=== PATIENT | male | born 1930 | race Caucasian/White ===

== ENCOUNTER 2018-01-25 12:14 | Outpatient (CLI) | payer MEDICARE, BC ==
[~2018-01-25] VITALS: Ht 180.3 cm; Wt 86.2 kg
[~2018-01-25 12:14] MED LIST: ADVAIR 230/21 PO; ALB0.5UD NEB; CARV3.122 PO; SIMV20TA5 PO; UBID1CAP54 PO; WARF5TAB PO; XAL0.005OS OP
[2018-01-25 13:01] LABS: TOTAL HEMOGLOBIN 14.8 G/dl (14.0-18.0)
[2018-01-25] MEDS ORDERED: albuterol 2.5 MG/3 ML nebule NEB ONE (13:20)
== END 2018-01-25 23:59 | disposition home or self-care (01) ==
LOC: RT 12:14
PROVIDERS: ATTEND Internal Medicine Pulmonary Disease
DX: J44.9 Chronic obstructive pulmonary disease, unspecified (principal)
CPT/HCPCS: 85018; 94010; 94727; 94729

== ENCOUNTER 2020-07-02 07:01 | Outpatient (CLI) | payer MEDICARE ==
[~2020-07-02 07:01] MED LIST changes: -ADVAIR 230/21 PO; -ALB0.5UD NEB; +ATRNS; +GABA-530 PO; +SIMV-42 PO; -SIMV20TA5 PO; -WARF5TAB PO; +WARF5TAB2 PO
[2020-07-02 07:31] LABS: TOTAL HEMOGLOBIN 16.1 G/dl (14.0-18.0)
== END 2020-07-02 23:59 | disposition home or self-care (01) ==
LOC: RT 07:01
PROVIDERS: ATTEND Internal Medicine Pulmonary Disease
DX: J84.112 Idiopathic pulmonary fibrosis (principal); R94.2 Abnormal results of pulmonary function studies
CPT/HCPCS: 85018; 94010; 94727; 94729

== ENCOUNTER 2020-10-21 06:17 | Outpatient (CLI) | payer MEDICARE | END 2020-10-21 23:59 | disposition home or self-care (01) | LOC: RT 06:17 | PROVIDERS: ATTEND Internal Medicine Pulmonary Disease | DX: J84.10 Pulmonary fibrosis, unspecified (principal); J44.9 Chronic obstructive pulmonary disease, unspecified | CPT/HCPCS: 94618 ==

== ENCOUNTER 2021-06-04 06:15 | Emergency (ER) | payer MEDICARE ==
[~2021-06-04] VITALS: Ht 157.5 cm; Wt 77.6 kg
[2021-06-04] MEDS ORDERED: TETanus/Pertussis (Acell)/Diphther VAC/PF (Tdap-Adult) 0.5ml syringe IMVAC ONE (06:40)
--- NOTE | 2021-06-04 07:13 | NUR ---
PT TAKEN TO CT. PT HAS NO OBVIOUS DISTRESS NOTED. ON CHRONIC 3L NC. NO PAIN
[2021-06-04] MEDS ORDERED: LIDOcaine 1% W/epiNEPHrine 1:200,000 10ml vial IJ ONE (07:50)
[2021-06-04 08:57] VITALS: BP 111/75
== END 2021-06-04 08:58 | disposition home or self-care (01) ==
LOC: ER 06:16
DX: S01.111A Laceration without foreign body of right eyelid and periocular area, initial encounter (principal); I48.91 Unspecified atrial fibrillation; I25.10 Atherosclerotic heart disease of native coronary artery without angina pectoris; Z20.3 Contact with and (suspected) exposure to rabies; Z98.890 Other specified postprocedural states; Z95.0 Presence of cardiac pacemaker; Z79.899 Other long term (current) drug therapy; W19.XXXA Unspecified fall, initial encounter; Y93.89 Activity, other specified; Y92.89 Other specified places as the place of occurrence of the external cause; Y99.8 Other external cause status
CPT/HCPCS: 12011; 70450; 70486; 72125; 90471; 90715; 99285

== ENCOUNTER 2021-09-10 21:54 | Inpatient (IN) | payer MEDICARE ==
[~2021-09-10] VITALS: Ht 180.3 cm; Wt 89.1 kg
[~2021-09-10 21:54] MED LIST changes: +HYDR12.55 PO
[2021-09-10] MEDS ORDERED: normal saline 1000ml 1,000 ML IV ONE (22:05)
[2021-09-10 22:26] LABS: EOSINOPHILS # (AUTO) 0.1 X10'3 (0-0.9); MONOCYTES # (AUTO) 0.4 X10'3 (0-0.9); PLATELET COUNT 82 X10'3 (140-440)
[2021-09-10 22:28] LABS: BASOPHILS % (AUTO) 0.5 % (0-1); EOSINOPHILS % (AUTO) 1.3 % (0-6); HEMATOCRIT 41.1 % (42.0-52.0); HEMOGLOBIN 13.2 g/dl (14.0-17.9); LYMPHOCYTES # (AUTO) 1.6 X10'3 (1.1-4.8); LYMPHOCYTES % (AUTO) 24.6 % (21-51); MEAN CORPUSCULAR HEMOGLOBIN 29.7 PG (27.0-31.0); MEAN CORPUSCULAR HGB CONC 32.1 g/dL (33.0-36.5); MEAN CORPUSCULAR VOLUME 92.6 FL (78-98); MEAN PLATELET VOLUME 9.8 FL (7.4-10.4); MONOCYTES % (AUTO) 6.6 % (2-12); NEUTROPHILS # (AUTO) 4.3 X10'3 (1.8-7.7); RED BLOOD COUNT 4.44 X10'6 (4.70-6.10); RED CELL DISTRIBUTION WIDTH 17.9 % (11.5-14.5); WHITE BLOOD COUNT 6.4 X10'3 (4.5-11.0)
[2021-09-10 22:40] LABS: D-DIMER 1.95 MG/L FEU (0-0.50)
[2021-09-10 22:42] LABS: ALANINE AMINOTRANSFERASE 25 U/L (12-78); ALBUMIN 3.1 G/DL (3.4-5.0); ALBUMIN/GLOBULIN RATIO 0.9 (1.1-1.5); ALKALINE PHOSPHATASE 94 IU/L (46-116); ANION GAP 7 (8-16); ASPARTATE AMINO TRANSFERASE 24 U/L (10-37); BILIRUBIN,TOTAL 1.6 MG/DL (0.1-1.0); BLOOD UREA NITROGEN 29 MG/DL (7-18); BUN/CREATININE RATIO 20.3 (5.4-32.0); CALCIUM 8.8 MG/DL (8.5-10.1); CHLORIDE 107 MMOL/L (99-107); CREATININE 1.43 MG/DL (0.60-1.10); GLUCOSE 111 MG/DL (70-104); SODIUM 147 MMOL/L (135-145); TOTAL CARBON DIOXIDE 33.2 MMOL/L (24-32); TOTAL PROTEIN 6.5 G/DL (6.4-8.2); eGFR 47 ML/MIN
[2021-09-10] MEDS ORDERED: normal saline 1000ML IV soln IVB ONE (22:45)
[2021-09-11] VITALS (12 sets, daily range): BP systolic 77–124; BP diastolic 45–78
[2021-09-11] MEDS ORDERED: CLINDAMYCIN 300mg/NS 50ml IVPB 50 ML IV SCH (00:12)
[2021-09-11] MEDS ORDERED: iohexol 350MG/ML 100ml bottle IV ONE (00:26)
[2021-09-11] MEDS ORDERED: acetaminophen 325mg tablet PO PRN (02:00)
[2021-09-11] MEDS ORDERED: potassium Cl 40MEQ/1/2NS 520ml 520 ML IV PRN ×2 (02:00)
[2021-09-11] MEDS ORDERED: potassium Cl 20 mEq SR tablet PO PRN (02:00)
[2021-09-11] MEDS ORDERED: ondansetron/PF 4mg/2ml inj IV PRN (02:00)
[2021-09-11] MEDS ORDERED: magnesium hydroxide 30ml (MOM) UD suspension PO PRN (02:00)
[2021-09-11] MEDS ORDERED: mag hydrox/Alum hydrox/simeth 30ml oral suspension PO PRN (02:00)
[2021-09-11] MEDS ORDERED: PERFLUTREN PROTEIN-A MICROSPHR (Optison) 0.22 MG/ML 3ML VIAL IV PRN (02:00)
[2021-09-11] MEDS ORDERED: methylPREDNISolone sod succ/PF 40mg inj. IV ONE (02:10)
--- NOTE | 2021-09-11 03:51 | NUR ---
Patient in room ED 5. I have received report from REAGAN MURPHY and had the opportunity to ask questions and assume patient care.
--- NOTE | 2021-09-11 04:06 | NUR ---
ATTEMPTED TO INTERREGATE PACEMAKER WITH [facility] [employer] BUT NEITHER WORKED. PT UNSURE OF PACEMAKER BRAND.
--- NOTE | 2021-09-11 06:34 | NUR ---
Problems reprioritized. Patient report given, questions answered & plan of care reviewed with Ayana MURPHY.
--- NOTE | 2021-09-11 07:35 | NUR ---
Patient in room PCU 3024. I have received report from Anitha MURPHY and had the opportunity to ask questions and assume patient care. Pt right side lying in bed, HOB at 15 degrees, breathing even and non labored. safety measures in place. no current active bleeding to head laceration secondary to fall. at bedside. no s/sx acute distress.
[2021-09-11] MEDS: K and/or MAG REPLACEMENT MC SCH ×2 (08:00→20:00)
[2021-09-11] MEDS ORDERED: warfarin 5mg tablet PO SCH (08:00)
[2021-09-11] MEDS: carVEDilol 3.125mg tablet PO SCH ×2 (08:00→20:33)
[2021-09-11] MEDS: atorvastatin 10mg tablet PO SCH (08:31)
[2021-09-11] MEDS: docusate sod 100mg capsule PO SCH ×2 (08:31→20:34)
--- NOTE | 2021-09-11 10:21 | NUR ---
Called Dr. Huynh's office to attempt to find out what kind of pacemaker pt has. Per Sarah at Dr. Huynh's office, Pt has [employer] device. Evin with [employer] called at [phone]. Per Evin, he is on the way to [place] now and then will head back this way to [place] to interrogate pt's pacemaker. Addendum: 09/11/21 at 1038 by Ayana Gallardo RN pacemaker infor report unit at pt bedside and initiated so information can be transmitted to Evin. Addendum: 09/11/21 at 1211 by Ayana Gallardo RN Per Evin at [employer]: single chamber pacemaker: 60 BPM base rate, paces 16% of the time. all tests revealed normal function of pacemaker. 2 high ventricular episodes recorded: 3 sec. of AFIB RVR, Sep.05 3 sec of AFIB with RVR. good Heart rate distribution, very occasionally paces.
[2021-09-11] MEDS ORDERED: furosemide 40mg/4ml inj IV ONE ×2 (12:10→18:30)
--- NOTE | 2021-09-11 12:30 | NUR ---
Lasix admin delayed until after VQ scan per Dr. Márquez direction.
--- NOTE | 2021-09-11 13:37 | NUR ---
paged pharmacy re: ipatropium nasal spray. med needed for administration.
[2021-09-11] MEDS ORDERED: TRAZ-251 PO (13:55)
[2021-09-11] MEDS ORDERED: POTA10TA10 PO (13:55)
[2021-09-11] MEDS ORDERED: BUME2TAB7 PO (13:55)
--- NOTE | 2021-09-11 14:25 | NUR ---
Age screen: Pt admit for syncope. Initially on a heart healthy diet however patient's diet has been appropriately adjusted to mechanical soft vegetarian with nectar thick liquids. Noted pt s/p BSS at previous visit 08/[address] recs mechanical soft chopped food with nectar thick liquids and pt with good PO intake that admit. D/w dietary to chop foods this admit. Pt documented with a head laceration s/p fall which has been repaired per H&P. LBM 09/10, receiving routine bowel care. Will continue to follow and monitor need for nutrition intervention pending trends in PO intake. Addendum: 09/11/21 at [address] Amended: Links added.
[2021-09-11] MEDS ORDERED: DOBUTamine-DoBUTrex 500mg/D5W 250 ML IV SCH (16:15)
--- NOTE | 2021-09-11 16:30 | NUR ---
Paged Dr. Márquez Paged Dr. Márquez to confirm MD order for dobutamine drip. Dr. Márquez call back and state "yes start the drip."
--- NOTE | 2021-09-11 17:00 | NUR ---
Paged Dr. Márquez regarding strict I&O requirement with dobutamine asked if Dr. Márquez wants garcia catheter to monitor strict I&O with dobutamine per protocol due to pt with mixed continent/incontinent.
[2021-09-11] MEDS ORDERED: DOPamine 400mg/D5W 250ml 250 ML IV SCH (17:20)
[2021-09-11] MEDS: ipratropium 0.06% nasal spray 15ml NS SCH (17:22)
[2021-09-11] MEDS ORDERED: furosemide 20 MG/2 ML vial IV ONE (17:30)
--- NOTE | 2021-09-11 17:52 | NUR ---
Called Dr. Colvin to update on his fathers status. grateful for notification.
--- NOTE | 2021-09-11 17:54 | NUR ---
Paged Dr. Márquez: "RE: Paulino Colvin: [id number]: garcia catheter for strict I&O? -Ayana #[id number]"
--- NOTE | 2021-09-11 18:20 | NUR ---
Dr. Huynh to see pt. new orders received. d/c one time lasix 20 mg. start 40mg Q8hr CM/DC planning for "picc line at home for low flow dopamine" garcia catheter ensure covid test completed. start dopamine 2mcg/kg/min.
--- NOTE | 2021-09-11 19:00 | NUR ---
Problems reprioritized. Patient report given, questions answered & plan of care reviewed with Kathia MURPHY. full report of med changes and orders given. detailed report given. no s/sx acute distress.
[2021-09-11] MEDS ORDERED: LIDOcaine 2% 10ml TOPICAL JELLY (Urojet) TP ONE (19:05)
[2021-09-11] MEDS ORDERED: warfarin 2.5mg tablet PO ONE (21:00)
[2021-09-11] MEDS ORDERED: VIT E ACETATE PO SCH (21:00)
[2021-09-11] MEDS ORDERED: UBIDECARENONE PO SCH (21:00)
[2021-09-11] MEDS: latanoprost 0.005% 2.5ml ophthalmic drops EACHEYE SCH (21:00)
[2021-09-11] MEDS: DOPamine 400mg/D5W 250ml 250 ML IV SCH (23:03)
[2021-09-12] VITALS (16 sets, daily range): BP systolic 85–136; BP diastolic 52–95
[2021-09-12 01:04] LABS: BASOPHILS % (AUTO) 0.2 % (0-1); EOSINOPHILS # (AUTO) 0.1 X10'3 (0-0.9); EOSINOPHILS % (AUTO) 1.1 % (0-6); LYMPHOCYTES # (AUTO) 1.3 X10'3 (1.1-4.8); LYMPHOCYTES % (AUTO) 21.9 % (21-51); MEAN CORPUSCULAR HEMOGLOBIN 29.9 PG (27.0-31.0); MEAN CORPUSCULAR HGB CONC 32.6 g/dL (33.0-36.5); MEAN CORPUSCULAR VOLUME 91.6 FL (78-98); MEAN PLATELET VOLUME 9.8 FL (7.4-10.4); MONOCYTES # (AUTO) 0.4 X10'3 (0-0.9); MONOCYTES % (AUTO) 6.8 % (2-12); NEUTROPHILS # (AUTO) 4.2 X10'3 (1.8-7.7); PLATELET COUNT 86 X10'3 (140-440); RED BLOOD COUNT 4.37 X10'6 (4.70-6.10); RED CELL DISTRIBUTION WIDTH 17.6 % (11.5-14.5)
[2021-09-12] MEDS: latanoprost 0.005% 2.5ml ophthalmic drops EACHEYE SCH (01:15)
[2021-09-12 01:19] LABS: ALANINE AMINOTRANSFERASE 27 U/L (12-78); ALBUMIN 3.1 G/DL (3.4-5.0); ALBUMIN/GLOBULIN RATIO 0.9 (1.1-1.5); ALKALINE PHOSPHATASE 93 IU/L (46-116); ANION GAP 4 (8-16); ASPARTATE AMINO TRANSFERASE 24 U/L (10-37); BILIRUBIN,TOTAL 1.4 MG/DL (0.1-1.0); BLOOD UREA NITROGEN 26 MG/DL (7-18); BUN/CREATININE RATIO 25.7 (5.4-32.0); CHLORIDE 107 MMOL/L (99-107); CREATININE 1.01 MG/DL (0.60-1.10); GLUCOSE 116 MG/DL (70-104); MAGNESIUM 2.5 MG/DL (1.5-2.4); POTASSIUM 4.3 MMOL/L (3.5-5.1); SODIUM 145 MMOL/L (135-145); TOTAL CARBON DIOXIDE 34.1 MMOL/L (24-32); TOTAL PROTEIN 6.7 G/DL (6.4-8.2); eGFR 70 ML/MIN
--- NOTE | 2021-09-12 06:37 | NUR ---
Patient in room PCU 3022. I have received report from Kathia MURPHY and had the opportunity to ask questions and assume patient care. Pt right side lying in bed, breathing even and non labored. 5LPM//. dopamine at 3mcgs. bp 115/64; 98; 98%; 14; safety measures in place. no s/sx acute distress.
[2021-09-12] MEDS: K and/or MAG REPLACEMENT MC SCH ×2 (08:00→20:00)
[2021-09-12] MEDS: ipratropium 0.06% nasal spray 15ml NS SCH (08:00)
[2021-09-12] MEDS: atorvastatin 10mg tablet PO SCH (08:40)
[2021-09-12] MEDS: carVEDilol 3.125mg tablet PO SCH ×2 (08:41→20:31)
[2021-09-12] MEDS: furosemide 40mg/4ml inj IV SCH ×4 (08:41→20:31)
[2021-09-12] MEDS: docusate sod 100mg capsule PO SCH ×2 (08:41→20:31)
--- NOTE | 2021-09-12 15:20 | NUR ---
Nutrition consult re: "pt/ would like to discuss diet, vegetarian diet too scanty". Noted patient's diet has been changed from vegetarian to heart healthy with no pork. Pt seen at bedside, SO not present. Pt confirms he would like to continue current diet and just not receive pork and denies any questions or concerns about meal trays or diet order. Pt endorses a good appetite and states he is okay with receiving chopped food during admit. Pt denies any food allergies. RD contact information provided and pt encouraged to reach out for further questions. RD d/w RN regarding patient's meals while on vegetarian diet. RN reports concerns regarding insufficient entree on vegetarian diet. This will be d/w dietary GM and head of stock. Addendum: 09/12/21 at [address] Amended: Links added.
[2021-09-12] MEDS: DOPamine 400mg/D5W 250ml 250 ML IV SCH (17:47)
--- NOTE | 2021-09-12 17:48 | NUR ---
F/u: Received TC from RN that patient's SO at bedside. Pt and SO seen at bedside, food preferences were obtained and d/w dietary. Requests: yogurt BIDBD, cottage cheese WL, and no MSG. SO requested diet be advanced to regular and for pt to just have no salt packets, d/w RN and dietary. SO requests to not chop food so patient cant get additional items such as bread, d/w dietary. SO agrees to f/u BSS with ST this admit to ensure pt receives most appropriate texture modification, d/w RN. SO also inquired about protein intake for pt. RD discussed ways to increase protein intake with food and ONS and provided ONS coupons. SO declines need for ONS during admit at this time. Of note, pt eating well with average 75% PO intake throughout LOS. All questions were answered at this time. Pt and SO once again encouraged to reach out for any additional questions/concerns. Will remain available. Addendum: 09/12/21 at [address] Amended: Links added.
--- NOTE | 2021-09-12 18:18 | NUR ---
MRI with Pacemaker: Evin with [employer] called. 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 (no testing done on this particular pacemaker therefore not approved. if benefit outweighs risk, then proceed with caution)
--- NOTE | 2021-09-12 18:50 | NUR ---
Problems reprioritized. Patient report given, questions answered & plan of care reviewed with Olivia MURPHY. reviewed cardiac drip, necessity for new IV site shelbi, and pacemaker not compatable with MRI in addition to all other applicable medical/social information. IV patent running dopamine at 3mcgs.
[2021-09-12] MEDS ORDERED: warfarin 2.5mg tablet PO ONE (21:00)
--- NOTE | 2021-09-12 21:05 | NUR ---
19 beats of Vtach reported to Dr Ruiz order given to draw K and Mag and replace as needed. CMP ordered stat.
[2021-09-12 21:46] LABS: ALANINE AMINOTRANSFERASE 24 U/L (12-78); ALBUMIN 2.9 G/DL (3.4-5.0); ALBUMIN/GLOBULIN RATIO 0.8 (1.1-1.5); ALKALINE PHOSPHATASE 96 IU/L (46-116); ANION GAP 4 (8-16); ASPARTATE AMINO TRANSFERASE 24 U/L (10-37); BILIRUBIN,TOTAL 1.5 MG/DL (0.1-1.0); BLOOD UREA NITROGEN 20 MG/DL (7-18); CALCIUM 9.2 MG/DL (8.5-10.1); CHLORIDE 105 MMOL/L (99-107); CREATININE 0.91 MG/DL (0.60-1.10); GLUCOSE 99 MG/DL (70-104); SODIUM 146 MMOL/L (135-145); TOTAL CARBON DIOXIDE 36.9 MMOL/L (24-32); TOTAL PROTEIN 6.7 G/DL (6.4-8.2); eGFR 78 ML/MIN
[2021-09-13] VITALS (9 sets, daily range): BP systolic 81–120; BP diastolic 55–84
--- NOTE | 2021-09-13 04:21 | NUR ---
Pt asleep arousal,denied any chest discomfort. IV medication infusing well.
--- NOTE | 2021-09-13 06:50 | NUR ---
Patient in room PCU 3022. I have received report from Olivia MURPHY and had the opportunity to ask questions and assume patient care.
[2021-09-13] MEDS: K and/or MAG REPLACEMENT MC SCH ×2 (08:00→20:00)
[2021-09-13] MEDS: docusate sod 100mg capsule PO SCH ×2 (08:00→20:49)
[2021-09-13] MEDS: ipratropium 0.06% nasal spray 15ml NS SCH (08:00)
[2021-09-13] MEDS: atorvastatin 10mg tablet PO SCH (08:00)
[2021-09-13 08:10] LABS: ANION GAP 5 (8-16); BASOPHILS % (AUTO) 0.3 % (0-1); BLOOD UREA NITROGEN 18 MG/DL (7-18); CHLORIDE 105 MMOL/L (99-107); CREATININE 0.72 MG/DL (0.60-1.10); EOSINOPHILS # (AUTO) 0.2 X10'3 (0-0.9); EOSINOPHILS % (AUTO) 2.7 % (0-6); GLUCOSE 86 MG/DL (70-104); HEMATOCRIT 37.7 % (42.0-52.0); HEMOGLOBIN 12.1 g/dl (14.0-17.9); LYMPHOCYTES # (AUTO) 1.2 X10'3 (1.1-4.8); LYMPHOCYTES % (AUTO) 19.1 % (21-51); MEAN CORPUSCULAR HEMOGLOBIN 29.2 PG (27.0-31.0); MEAN CORPUSCULAR HGB CONC 32.1 g/dL (33.0-36.5); MEAN CORPUSCULAR VOLUME 90.8 FL (78-98); MEAN PLATELET VOLUME 9.1 FL (7.4-10.4); MONOCYTES # (AUTO) 0.5 X10'3 (0-0.9); MONOCYTES % (AUTO) 7.4 % (2-12); NEUTROPHILS # (AUTO) 4.4 X10'3 (1.8-7.7); NEUTROPHILS % (AUTO) 70.5 % (42-75); PLATELET COUNT 91 X10'3 (140-440); POTASSIUM 3.3 MMOL/L (3.5-5.1); RED BLOOD COUNT 4.16 X10'6 (4.70-6.10); RED CELL DISTRIBUTION WIDTH 17.7 % (11.5-14.5); SODIUM 146 MMOL/L (135-145); TOTAL CARBON DIOXIDE 35.9 MMOL/L (24-32); WHITE BLOOD COUNT 6.2 X10'3 (4.5-11.0)
[2021-09-13 08:11] LABS: ALANINE AMINOTRANSFERASE 19 U/L (12-78); ALBUMIN 2.7 G/DL (3.4-5.0); ALBUMIN/GLOBULIN RATIO 0.8 (1.1-1.5); ALKALINE PHOSPHATASE 84 IU/L (46-116); ASPARTATE AMINO TRANSFERASE 23 U/L (10-37); BILIRUBIN,TOTAL 1.8 MG/DL (0.1-1.0); CALCIUM 8.5 MG/DL (8.5-10.1); MAGNESIUM 2.1 MG/DL (1.5-2.4); TOTAL PROTEIN 5.9 G/DL (6.4-8.2); eGFR > 90 ML/MIN
[2021-09-13] MEDS: carVEDilol 3.125mg tablet PO SCH ×2 (09:29→20:50)
[2021-09-13] MEDS: furosemide 40mg/4ml inj IV SCH (09:29)
[2021-09-13] MEDS: potassium Cl 20 mEq SR tablet PO PRN ×3 (10:29→20:49)
[2021-09-13] MEDS ORDERED: DOPamine 400mg/D5W 250ml 250 ML IV SCH (13:30)
--- NOTE | 2021-09-13 18:13 | NUR ---
[place] documentation: I have reviewed and agree with all interventions, assessments performed and documented by Abigail MURPHY.
--- NOTE | 2021-09-13 18:14 | NUR ---
[place] Medication Administration: For this medication-pass time frame, all medication were reviewed, dispensed, administered and documented per hospital policy by Abigail MURPHY.
--- NOTE | 2021-09-13 18:36 | NUR ---
Problems reprioritized. Patient report given, questions answered & plan of care reviewed with Olivia MURPHY. Patient stable at transfer of care.
[2021-09-13] MEDS: latanoprost 0.005% 2.5ml ophthalmic drops EACHEYE SCH (20:50)
[2021-09-13] MEDS ORDERED: warfarin 2.5mg tablet PO ONE (21:00)
[2021-09-13] MEDS: bumetanide 0.25mg/ml 4ml vial IV SCH (21:01)
--- NOTE | 2021-09-14 01:00 | NUR ---
Pt removed IV while sleeping; new IV access placed in right lateral hand. Linen changed done.
[2021-09-14 06:26] LABS: BASOPHILS % (AUTO) 0.3 % (0-1); EOSINOPHILS # (AUTO) 0.1 X10'3 (0-0.9); EOSINOPHILS % (AUTO) 2.4 % (0-6); HEMATOCRIT 39.6 % (42.0-52.0); HEMOGLOBIN 12.8 g/dl (14.0-17.9); LYMPHOCYTES # (AUTO) 1.1 X10'3 (1.1-4.8); MEAN CORPUSCULAR HEMOGLOBIN 29.7 PG (27.0-31.0); MEAN CORPUSCULAR HGB CONC 32.4 g/dL (33.0-36.5); MEAN CORPUSCULAR VOLUME 91.6 FL (78-98); MEAN PLATELET VOLUME 9.4 FL (7.4-10.4); MONOCYTES # (AUTO) 0.3 X10'3 (0-0.9); MONOCYTES % (AUTO) 6.7 % (2-12); NEUTROPHILS # (AUTO) 3.5 X10'3 (1.8-7.7); NEUTROPHILS % (AUTO) 68.6 % (42-75); PLATELET COUNT 93 X10'3 (140-440); RED BLOOD COUNT 4.33 X10'6 (4.70-6.10); RED CELL DISTRIBUTION WIDTH 17.9 % (11.5-14.5); WHITE BLOOD COUNT 5.1 X10'3 (4.5-11.0)
[2021-09-14 06:40] LABS: ALANINE AMINOTRANSFERASE 19 U/L (12-78); ALBUMIN 2.9 G/DL (3.4-5.0); ALBUMIN/GLOBULIN RATIO 0.9 (1.1-1.5); ALKALINE PHOSPHATASE 88 IU/L (46-116); ANION GAP 6 (8-16); ASPARTATE AMINO TRANSFERASE 23 U/L (10-37); BILIRUBIN,TOTAL 2.7 MG/DL (0.1-1.0); BLOOD UREA NITROGEN 21 MG/DL (7-18); BUN/CREATININE RATIO 25.6 (5.4-32.0); CALCIUM 9.2 MG/DL (8.5-10.1); CHLORIDE 105 MMOL/L (99-107); CREATININE 0.82 MG/DL (0.60-1.10); GLUCOSE 91 MG/DL (70-104); POTASSIUM 3.8 MMOL/L (3.5-5.1); SODIUM 144 MMOL/L (135-145); TOTAL CARBON DIOXIDE 33.4 MMOL/L (24-32); TOTAL PROTEIN 6.3 G/DL (6.4-8.2); eGFR 88 ML/MIN
[2021-09-14 07:00] VITALS: BP 116/79
--- NOTE | 2021-09-14 07:35 | NUR ---
Patient in room PCU 3022. I have received report from Olivia MURPHY and had the opportunity to ask questions and assume patient care.
[2021-09-14] MEDS: carVEDilol 3.125mg tablet PO SCH (08:00)
[2021-09-14] MEDS: ipratropium 0.06% nasal spray 15ml NS SCH (08:00)
[2021-09-14] MEDS: bumetanide 0.25mg/ml 4ml vial IV SCH (08:00)
[2021-09-14] MEDS: K and/or MAG REPLACEMENT MC SCH (08:00)
[2021-09-14] MEDS: docusate sod 100mg capsule PO SCH (09:47)
[2021-09-14] MEDS: atorvastatin 10mg tablet PO SCH (09:47)
[2021-09-14 11:00] VITALS: BP 110/69
[2021-09-14] MEDS ORDERED: BUME2TAB7 PO (13:23)
--- NOTE | 2021-09-14 14:05 | NUR ---
Page Sent promotional table spacer PAGER ID: [phone] MESSAGE: [id number] Vinicius. Bumetanide is listed on the discharge twice. Once under new meds and once under continuing meds for a total of 4 mg. Did you want him to take 4 mg or 2 mg twice daily? Liyah [id number]
--- NOTE | 2021-09-14 15:44 | NUR ---
PT was dc to home. PIV x2 were removed with cannula intact. DC instructions and warning s/s were reviewed with patient and . They verbalized understanding. All belonging were sent with pt. he was using his home portable o2 to go home. RX were sent to [facility] on [address]. PT was alert, oriented, and appropriate at time of dc.
[2021-09-14] MEDS ORDERED: warfarin 4mg tablet PO ONE (21:00)
== END 2021-09-14 15:05 | disposition home health service (06) | DRG 604 ==
LOC: ER 21:55 → ED HOLD 09-11 02:03 → PCU 3S 09-11 04:00
PROVIDERS: ADMIT Internal Medicine; ATTEND Internal Medicine
PROC: 0HQ0XZZ Repair Scalp Skin, External Approach (ICD-10-PCS; principal; 2021-09-10)
PROC: B32T1ZZ Computerized Tomography (CT Scan) of Left Pulmonary Artery using Low Osmolar Contrast (ICD-10-PCS; 2021-09-11)
PROC: B3201ZZ Computerized Tomography (CT Scan) of Thoracic Aorta using Low Osmolar Contrast (ICD-10-PCS; 2021-09-11)
PROC: B32S1ZZ Computerized Tomography (CT Scan) of Right Pulmonary Artery using Low Osmolar Contrast (ICD-10-PCS; 2021-09-11)
PROC: CB121ZZ Planar Nuclear Medicine Imaging of Lungs and Bronchi using Technetium 99m (Tc-99m) (ICD-10-PCS; 2021-09-11)
DX: S01.01XA Laceration without foreign body of scalp, initial encounter (principal); I50.33 Acute on chronic diastolic (congestive) heart failure; I48.91 Unspecified atrial fibrillation; I25.10 Atherosclerotic heart disease of native coronary artery without angina pectoris; J44.9 Chronic obstructive pulmonary disease, unspecified; I07.1 Rheumatic tricuspid insufficiency; Z20.822 Contact with and (suspected) exposure to COVID-19; I27.20 Pulmonary hypertension, unspecified; J84.10 Pulmonary fibrosis, unspecified; Z66 Do not resuscitate; I27.81 Cor pulmonale (chronic); R09.02 Hypoxemia; W18.39XA Other fall on same level, initial encounter; R77.8 Other specified abnormalities of plasma proteins; R32 Unspecified urinary incontinence; Z85.820 Personal history of malignant melanoma of skin; Z90.79 Acquired absence of other genital organ(s); Z95.1 Presence of aortocoronary bypass graft; Z95.5 Presence of coronary angioplasty implant and graft; Z79.899 Other long term (current) drug therapy; Y93.89 Activity, other specified; Y92.098 Other place in other non-institutional residence as the place of occurrence of the external cause; Y99.8 Other external cause status
CPT/HCPCS: 12001; 36415; 70450; 71045; 71275; 72125; 78582; 80053; 82948; 83605; 83735; 83880; 84145; 84484; 85025; 85379; 85610; 86885; 86900; 86901; 87040; 87081; 87635; 92508; 92616; 93005; 93306; 93880; 97110; 97116; 97162; 99285; A9539; A9540; G0378; J1250; J1265; J1940; J2920; J3490; J7030; Q9967

== ENCOUNTER 2021-11-23 21:42 | Inpatient (IN) | payer MEDICARE ==
[~2021-11-23] VITALS: Ht 180.3 cm; Wt 80.0 kg
[~2021-11-23 21:42] MED LIST changes: +BUME2TAB7 PO; -HYDR12.55 PO; +POTA-188 PO; +TRAZ-251 PO; +cefepime 2g/NS 100ml ADVANTAGE 100 ML IV ONE
[2021-11-23 22:26] LABS: BASOPHILS % (AUTO) 0.5 % (0-1); EOSINOPHILS # (AUTO) 0.1 X10'3 (0-0.9); EOSINOPHILS % (AUTO) 0.8 % (0-6); HEMATOCRIT 39.2 % (42.0-52.0); HEMOGLOBIN 12.4 g/dl (14.0-17.9); LYMPHOCYTES # (AUTO) 1.6 X10'3 (1.1-4.8); LYMPHOCYTES % (AUTO) 17.6 % (21-51); MEAN CORPUSCULAR HGB CONC 31.7 g/dL (33.0-36.5); MEAN CORPUSCULAR VOLUME 88.3 FL (78-98); MEAN PLATELET VOLUME 9.9 FL (7.4-10.4); MONOCYTES # (AUTO) 0.6 X10'3 (0-0.9); MONOCYTES % (AUTO) 6.4 % (2-12); NEUTROPHILS # (AUTO) 6.9 X10'3 (1.8-7.7); NEUTROPHILS % (AUTO) 74.7 % (42-75); PLATELET COUNT 119 X10'3 (140-440); RED BLOOD COUNT 4.45 X10'6 (4.70-6.10); RED CELL DISTRIBUTION WIDTH 16.9 % (11.5-14.5); WHITE BLOOD COUNT 9.2 X10'3 (4.5-11.0)
[2021-11-23] MEDS ORDERED: albuterol 2.5 MG/3 ML nebule NEB ONE (22:30)
[2021-11-23 22:41] LABS: ALANINE AMINOTRANSFERASE 19 U/L (12-78); ALBUMIN 3.3 G/DL (3.4-5.0); ALBUMIN/GLOBULIN RATIO 0.9 (1.1-1.5); ALKALINE PHOSPHATASE 100 IU/L (46-116); ANION GAP 8 (8-16); ASPARTATE AMINO TRANSFERASE 26 U/L (10-37); BILIRUBIN,TOTAL 1.4 MG/DL (0.1-1.0); BLOOD UREA NITROGEN 25 MG/DL (7-18); BUN/CREATININE RATIO 23.8 (5.4-32.0); CALCIUM 9.2 MG/DL (8.5-10.1); CHLORIDE 102 MMOL/L (99-107); CREATININE 1.05 MG/DL (0.60-1.10); GLUCOSE 101 MG/DL (70-104); POTASSIUM 4.5 MMOL/L (3.5-5.1); SODIUM 143 MMOL/L (135-145); TOTAL CARBON DIOXIDE 32.6 MMOL/L (24-32); eGFR 67 ML/MIN
[2021-11-23] MEDS ORDERED: cefepime 2g/NS 100ml ADVANTAGE 100 ML IV ONE (22:46)
[2021-11-23] MEDS ORDERED: vancomycin/NS 1 GM ADD-VANTAGE 250 ML IV ONE (22:50)
[2021-11-23] MEDS ORDERED: iohexol 350MG/ML 100ml bottle IV ONE (23:05)
[2021-11-24] MEDS ORDERED: bumetanide 0.25mg/ml 4ml vial IV STA (00:17)
[2021-11-24] MEDS ORDERED: methylPREDNISolone sod succ 125mg/2ml vial IV ONE (00:20)
[2021-11-24] MEDS ORDERED: BUME2TAB7 PO (02:07)
[2021-11-24 02:44] LABS: APTT 34 SECONDS (22-32)
[2021-11-24] MEDS ORDERED: mag hydrox/Alum hydrox/simeth 30ml oral suspension PO PRN (02:55)
[2021-11-24] MEDS ORDERED: potassium CL 10mEq/100ml bag 100 ML IV PRN (02:55)
[2021-11-24] MEDS ORDERED: acetaminophen 325mg tablet PO PRN (02:55)
[2021-11-24] MEDS ORDERED: ondansetron/PF 4mg/2ml inj IV PRN (02:55)
[2021-11-24] MEDS ORDERED: magnesium 4gm in 100ml NS 100 ML IV PRN (02:55)
[2021-11-24] MEDS ORDERED: magnesium Cl slow-release 64mg tablet PO PRN (02:55)
[2021-11-24] MEDS ORDERED: potassium Cl 20 mEq SR tablet PO PRN ×2 (02:55)
[2021-11-24] MEDS ORDERED: magnesium hydroxide 30ml (MOM) UD suspension PO PRN (02:55)
[2021-11-24] MEDS ORDERED: magnesium 2GM in 50ml NS 50 ML IV PRN (02:55)
--- NOTE | 2021-11-24 04:03 | NUR ---
Moved to hospital bed.
[2021-11-24 04:29] LABS: MAGNESIUM 2.6 MG/DL (1.5-2.4); POTASSIUM 4.7 MMOL/L (3.5-5.1)
[2021-11-24] MEDS: K and/or MAG REPLACEMENT MC SCH ×2 (08:00→20:00)
[2021-11-24] MEDS: carVEDilol 3.125mg tablet PO SCH ×3 (08:00→20:47)
[2021-11-24] MEDS ORDERED: atorvastatin 10mg tablet PO SCH ×2 (08:00→11:50)
[2021-11-24] MEDS: docusate sod 100mg capsule PO SCH ×2 (08:00→20:46)
[2021-11-24] MEDS ORDERED: warfarin 5mg tablet PO SCH (08:00)
[2021-11-24] MEDS: bumetanide 1mg tablet PO SCH (08:00)
[2021-11-24] MEDS: ipratropium 0.06% nasal spray 15ml NS SCH (08:00)
--- NOTE | 2021-11-24 08:45 | NUR ---
Received pt from ED via wc to 350A. Call light in reach, bed low. Pt A&O x4. Meds at bedside held at desk for to pick up man. Discussed POC. Pt verbalized understanding.
[2021-11-24 09:00] VITALS: BP 103/66
[2021-11-24] MEDS: gabapentin 300mg capsule PO SCH ×3 (11:26→20:46)
[2021-11-24] MEDS: cefuroxime axetil 250mg tablet PO SCH ×2 (11:26→20:48)
[2021-11-24] MEDS: potassium chloride 10mEq ER tablet PO SCH (11:26)
[2021-11-24 12:00] VITALS: BP 88/50
[2021-11-24 13:30] VITALS: BP 91/65
[2021-11-24 16:09] LABS: BASOPHILS % (AUTO) 0.2 % (0-1); EOSINOPHILS % (AUTO) 0 % (0-6); HEMATOCRIT 38.2 % (42.0-52.0); HEMOGLOBIN 12.3 g/dl (14.0-17.9); LYMPHOCYTES # (AUTO) 1.1 X10'3 (1.1-4.8); LYMPHOCYTES % (AUTO) 23.6 % (21-51); MEAN CORPUSCULAR HEMOGLOBIN 28.1 PG (27.0-31.0); MEAN CORPUSCULAR HGB CONC 32.1 g/dL (33.0-36.5); MEAN CORPUSCULAR VOLUME 87.6 FL (78-98); MONOCYTES # (AUTO) 0.1 X10'3 (0-0.9); MONOCYTES % (AUTO) 2.7 % (2-12); NEUTROPHILS # (AUTO) 3.6 X10'3 (1.8-7.7); NEUTROPHILS % (AUTO) 73.5 % (42-75); PLATELET COUNT 110 X10'3 (140-440); RED BLOOD COUNT 4.36 X10'6 (4.70-6.10); RED CELL DISTRIBUTION WIDTH 17.1 % (11.5-14.5); WHITE BLOOD COUNT 4.9 X10'3 (4.5-11.0)
--- NOTE | 2021-11-24 18:20 | NUR ---
Problems reprioritized. Patient report given, questions answered & plan of care reviewed with JEFFREY FranciscoT.
[2021-11-24 20:00] VITALS: BP 91/64
[2021-11-24] MEDS: lactobacillus rhamnosus 10,000 MMU CELLS/CAPSULE PO SCH (20:46)
[2021-11-24] MEDS ORDERED: VIT E ACETATE PO SCH (21:00)
[2021-11-24] MEDS ORDERED: traZODone 50mg tablet PO SCH (21:00)
[2021-11-24] MEDS ORDERED: UBIDECARENONE PO SCH (21:00)
[2021-11-24] MEDS ORDERED: latanoprost 0.005% 2.5ml ophthalmic drops EACHEYE SCH (21:00)
[2021-11-24] MEDS ORDERED: warfarin 4mg tablet PO ONE (21:00)
[2021-11-25] VITALS: BP 91/52
[2021-11-25 06:00] VITALS: BP 155/133
--- NOTE | 2021-11-25 06:15 | NUR ---
Patient in room SABA 350. I have received report from GRECIA Francisco and had the opportunity to ask questions and assume patient care.
--- NOTE | 2021-11-25 06:30 | NUR ---
Patient slept for most of the night .Report given to Aylin MURPHY
[2021-11-25 06:38] LABS: BASOPHILS % (AUTO) 0.1 % (0-1); EOSINOPHILS % (AUTO) 0.1 % (0-6); HEMATOCRIT 34.7 % (42.0-52.0); HEMOGLOBIN 11.4 g/dl (14.0-17.9); LYMPHOCYTES # (AUTO) 1.1 X10'3 (1.1-4.8); LYMPHOCYTES % (AUTO) 17.9 % (21-51); MEAN CORPUSCULAR HEMOGLOBIN 28.7 PG (27.0-31.0); MEAN CORPUSCULAR HGB CONC 32.9 g/dL (33.0-36.5); MEAN CORPUSCULAR VOLUME 87.2 FL (78-98); MEAN PLATELET VOLUME 10.1 FL (7.4-10.4); MONOCYTES # (AUTO) 0.5 X10'3 (0-0.9); MONOCYTES % (AUTO) 8.8 % (2-12); NEUTROPHILS # (AUTO) 4.4 X10'3 (1.8-7.7); NEUTROPHILS % (AUTO) 73.1 % (42-75); PLATELET COUNT 107 X10'3 (140-440); RED BLOOD COUNT 3.98 X10'6 (4.70-6.10); RED CELL DISTRIBUTION WIDTH 16.6 % (11.5-14.5)
[2021-11-25] MEDS: ipratropium 0.06% nasal spray 15ml NS SCH (06:41)
[2021-11-25 07:11] LABS: ALANINE AMINOTRANSFERASE 14 U/L (12-78); ALBUMIN 2.6 G/DL (3.4-5.0); ALBUMIN/GLOBULIN RATIO 0.8 (1.1-1.5); ALKALINE PHOSPHATASE 76 IU/L (46-116); ANION GAP 5 (8-16); ASPARTATE AMINO TRANSFERASE 17 U/L (10-37); BLOOD UREA NITROGEN 35 MG/DL (7-18); BUN/CREATININE RATIO 29.9 (5.4-32.0); CALCIUM 9.5 MG/DL (8.5-10.1); CHLORIDE 103 MMOL/L (99-107); CREATININE 1.17 MG/DL (0.60-1.10); GLUCOSE 128 MG/DL (70-104); POTASSIUM 4.7 MMOL/L (3.5-5.1); SODIUM 140 MMOL/L (135-145); TOTAL CARBON DIOXIDE 31.9 MMOL/L (24-32); eGFR 59 ML/MIN
[2021-11-25] MEDS: bumetanide 1mg tablet PO SCH (07:55)
[2021-11-25] MEDS: potassium chloride 10mEq ER tablet PO SCH (07:55)
[2021-11-25] MEDS: carVEDilol 3.125mg tablet PO SCH (07:55)
[2021-11-25] MEDS: cefuroxime axetil 250mg tablet PO SCH (07:55)
[2021-11-25] MEDS: docusate sod 100mg capsule PO SCH (07:55)
[2021-11-25] MEDS: lactobacillus rhamnosus 10,000 MMU CELLS/CAPSULE PO SCH (07:55)
[2021-11-25] MEDS: gabapentin 300mg capsule PO SCH (07:55)
[2021-11-25] MEDS: K and/or MAG REPLACEMENT MC SCH (08:00)
[2021-11-25] MEDS ORDERED: LEVO500T90 PO (10:45)
== END 2021-11-25 13:26 | disposition home or self-care (01) | DRG 193 ==
LOC: ER 21:42 → UNDOADMIN 11-24 02:55 → ED HOLD 11-24 02:55 → SUR 3N 11-24 08:51 → ED HOLD 11-24 08:51 → UNDODISIN 11-25 11:09
PROVIDERS: ADMIT Internal Medicine; ATTEND Internal Medicine
PROC: B32T1ZZ Computerized Tomography (CT Scan) of Left Pulmonary Artery using Low Osmolar Contrast (ICD-10-PCS; principal; 2021-11-23)
PROC: B3201ZZ Computerized Tomography (CT Scan) of Thoracic Aorta using Low Osmolar Contrast (ICD-10-PCS; 2021-11-23)
PROC: B32S1ZZ Computerized Tomography (CT Scan) of Right Pulmonary Artery using Low Osmolar Contrast (ICD-10-PCS; 2021-11-23)
DX: J18.9 Pneumonia, unspecified organism (principal); J96.01 Acute respiratory failure with hypoxia; I50.32 Chronic diastolic (congestive) heart failure; J44.0 Chronic obstructive pulmonary disease with (acute) lower respiratory infection; J84.10 Pulmonary fibrosis, unspecified; Z66 Do not resuscitate; Z20.822 Contact with and (suspected) exposure to COVID-19; I25.10 Atherosclerotic heart disease of native coronary artery without angina pectoris; I48.91 Unspecified atrial fibrillation; Z85.820 Personal history of malignant melanoma of skin; Z95.1 Presence of aortocoronary bypass graft; Z79.899 Other long term (current) drug therapy; Z95.0 Presence of cardiac pacemaker
CPT/HCPCS: 36415; 71045; 71275; 80053; 83605; 83735; 83880; 84132; 84145; 84484; 85025; 85610; 85730; 87040; 87081; 87635; 93005; 94640; 94760; 96365; 96375; 99285; C9803; G0378; J0692; J2930; J3370; Q9967